=== PATIENT | male | born 1985 | race Hispanic/Latino ===

== ENCOUNTER 2017-10-19 14:13 | Emergency (ER) | payer OTHER ==
[2017-10-19] MEDS ORDERED: LEXA1TAB PO (14:34)
[2017-10-19] MEDS ORDERED: NAPR500T PO (14:34)
--- NOTE | 2017-10-19 14:43 | REP ---
CT of the brain without IV contrast: There are no comparisons. There is no hemorrhage. There is no edema, mass effect or midline shift. The cortical stripe is unremarkable. Ventricles are normal size and midline. The visualized paranasal sinuses and mastoids are unremarkable. Impression: Negative CT study of the brain. Signed by Moshe Bosch MD 10/19/2017 02:35 P
[2017-10-19 14:58] LABS: BASO % 0.4 % (0.0-1.0); EOS # 0.1 10^3/uL (0.0-0.50); EOS % 1.8 % (0.0-3.0); IMMATURE GRANULOCYTE % 0.5 % (0-0); LYMPH # 2.3 10^3/uL (1.5-4.5); LYMPH % 30.8 % (24.0-44.0); MEAN CORPUSCULAR HEMOGLOBIN 27.5 pg (27.0-33.0); MEAN CORPUSCULAR HGB CONC 34.1 g/dl (32.0-36.5); MEAN CORPUSCULAR VOLUME 80.6 fl (80.0-96.0); MONO # 0.7 10^3/uL (0.0-0.8); MONO % 9.8 % (0.0-5.0); NEUTROPHILS # 4.3 10^3/uL (1.8-7.7); NEUTROPHILS % 56.7 % (36.0-66.0); PLATELET COUNT, AUTOMATED 265 10^3/uL (150-450); RED CELL DISTRIBUTION WIDTH 12.5 % (11.5-14.5); WHITE BLOOD COUNT 7.6 10^3/uL (4.0-10.0)
[2017-10-19 15:14] LABS: ANION GAP 6 MEQ/L (8-16); BLOOD UREA NITROGEN 13 MG/DL (7-18); CALCIUM LEVEL 8.6 MG/DL (8.5-10.1); CARBON DIOXIDE LEVEL 29 MEQ/L (21-32); CHLORIDE LEVEL 104 MEQ/L (98-107); CREATININE FOR GFR 1.15 MG/DL (0.70-1.30); GLOMERULAR FILTRATION RATE > 60.0 (>60); GLUCOSE, FASTING 93 MG/DL (70-105); POTASSIUM SERUM 3.9 MEQ/L (3.5-5.1); SODIUM LEVEL 139 MEQ/L (136-145)
[2017-10-19] MEDS ORDERED: ONDANSETRON 4MG/2ML VIAL (J2405) IV ONE (15:30)
[2017-10-19] MEDS ORDERED: OXcarbazepine 300 MG TAB PO STA (15:47)
[2017-10-19] MEDS ORDERED: OXcarbazepine 150 MG TAB PO STA (15:50)
[2017-10-19] MEDS ORDERED: TRIL600T PO (16:26)
[2017-10-19] MEDS ORDERED: TRIL1TAB PO ×2 (16:26→16:37)
[2017-10-19 16:34] VITALS: BP 141/65
--- NOTE | 2017-10-19 19:43 | ECGEPIP ---
Stationary ECG Study [facility] - ED Test Date: 2017-10-19 Pat Name: BLAS ARANADepartment: Room: - Gender: F Lawn Mower: YELENA : 1985 Requested By: Farzana Porter Order Number: [id number] Reading MD: Farzana Porter Measurements Intervals [place] Rate: 71 P: 24 [place]: 150 QRS: 3 QRSD: 94 T: -28 QT: 348 QTc: 381 Interpretive Statements SINUS RHYTHM NONSPECIFIC ST & T-WAVE ABNORMALITY DIFFUSE ST ELEVATION - RULE OUT EARLY REPOLARIZATION VS PERICARDITIS CLINICALLY CORRELATE NO OLD ECG FOR COMPARISON Electronically Signed On 10-19-2017 19:43:06 EST by Farzana Porter
== END 2017-10-19 16:42 | disposition home or self-care (01) ==
LOC: EDBD 14:13 → M ED 14:13 → EDSEX 14:13 → M ED 16:42
DX: R56.9 Unspecified convulsions (principal); F43.10 Post-traumatic stress disorder, unspecified; F33.9 Major depressive disorder, recurrent, unspecified; F41.9 Anxiety disorder, unspecified; Z79.899 Other long term (current) drug therapy
CPT/HCPCS: 70450; 80048; 85025; 93005; 93041; 96374; 99285; J2405

== ENCOUNTER → 2017-11-04 | Outpatient (CLI) | payer OTHER | LOC: M LRY 19:53 | DX: R07.89 Other chest pain (principal) | CPT/HCPCS: 71046; 93005 ==